=== PATIENT | male | born 2005 | race Caucasian/White ===

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

== ENCOUNTER 2024-05-11 04:53 | Emergency (ER) | payer OTHER, SELFPAY ==
[2024-05-11 04:58] VITALS: BP 141/85; O2SAT 98
[2024-05-11 05:00] VITALS: PULSE 121; O2SAT 100
[2024-05-11 05:01] VITALS: BP 141/85; PULSE 110; RESP 17; TEMP 36.8; O2SAT 97; BMI 16.7
--- NOTE | 2024-05-11 05:05 | ED.NAVMDI ---
HPI - Nausea/Vomiting/Diarrhea General Chief complaint: Nausea/Vomiting/Diarrhea Stated complaint: abd pain, sore throat, vomiting Time Seen by Provider: 05/11/24 05:00 Source: patient Mode of arrival: Ambulatory History of Present Illness HPI Narrative: Patient was otherwise healthy 18-year-old male who is here for evaluation of couple days of a sore throat. Is having some sinus congestion. This morning woke up and had some fairly severe abdominal pain and then vomiting. He reports that his nausea is actually improved. No change in bowel habits. Subjective fevers. Not tried anything for symptoms prior to arrival. Related Data Home Medications Medication Instructions Recorded Confirmed No Known Home Medications 08/24/18 11/18/20 Allergies Allergy/AdvReac Type Severity Reaction Status Date / Time No Known Drug Allergies Allergy Verified 11/18/20 09:01 Review of Systems Review of Systems Narrative: See HPI Patient History Medical History Fracture of clavicle Social History Smoking Status: Never smoker Smoking Status: Never smoker Exam Initial Vital Signs Initial Vital Signs: Vital Signs Blood Pressure 141/85 H 05/11/24 04:58 Pulse Oximetry 98 05/11/24 04:58 Const General: cooperative, comfortable and No ill appearing HENMT Head: normal to inspection and normocephalic Resp Effort & Inspection: normal respiratory effort Auscultation: clear to auscultation bilaterally Cardio Rate: tachycardic Rhythm: regular rhythm GI Inspection: normal to inspection and non-distended Palpation: soft and No tender Neuro General: patient alert and patient awake Course Orders Ordered: ED Orders 05/11/24 05:05 Covid-19 + FLU A/B + RSV - PCR Stat Vital Signs Vital signs: Vital Signs - 8 hr 05/11/24 04:58 05/11/24 04:58 05/11/24 05:00 Temperature Pulse Rate 121 H Respiratory Rate Blood Pressure 141/85 H Pulse Oximetry 98 100 Oxygen Delivery Method 05/11/24 05:01 05/11/24 05:30 Temperature 98.2 F Pulse Rate 110 H 85 Respiratory Rate 17 Blood Pressure 141/85 H Pulse Oximetry 97 100 Oxygen Delivery Method Room Air Room Air MDM - Nausea/Vomiting/Diarrhea Lab Data Attestation: I reviewed the patient's lab results. Labs: Lab Results 05/11/24 Range/Units 05:07 SARS-CoV-2 (PCR) Negative (Negative) Influenza A (RT-PCR) Flu a negative (NEGATIVE) Influenza B (RT-PCR) Flu b negative (NEGATIVE) RSV (PCR) Negative (Negative) MDM Narrative Medical decision making narrative: Patient was now relatively asymptomatic. COVID/flu/RSV negative. Abdomen exam is unremarkable. Tolerating oral intake. No indication for antibiotics. I suspect that his symptoms will continue to improve over the next couple hours/days. Patient was given return precautions and follow-up instructions. He expressed understanding and agreement with the plan. Discharge Plan Departure Patient Disposition: Home Clinical Impression: Acute vomiting Instructions: DI for Vomiting -- Adult Activity Restrictions/Additional Instructions: I do recommend a bland diet for the next couple days. Be sure that you are trying to increase your fluid intake. Return to the emergency department for new or worsening symptoms. Prescriptions: No Action No Known Home Medications Referrals: Jim Oliva MD [Primary Care Provider] - Stand Alone Forms: Patient Portal/API/Survey
[2024-05-11 05:30] VITALS: PULSE 85; O2SAT 100
[2024-05-11 05:54] LABS: Influenza A - CEPHEID Flu A NEGATIVE (NEGATIVE); Influenza B - CEPHEID Flu B NEGATIVE (NEGATIVE); Respiratory Syncytial Virus Negative (Negative)
[2024-05-11 06:00] VITALS: PULSE 79; O2SAT 100
[2024-05-11 06:01] LABS: COVID-19 CEPHEID 4-PLEX PCR Negative (Negative)
[2024-05-11 06:09] VITALS: BP 123/75; PULSE 86; TEMP 36.7; O2SAT 98
== END 2024-05-11 06:13 | disposition home or self-care (01) ==
PROVIDERS: Emergency Provider Emergency Medicine; Family Provider Family Medicine; PCP Family Medicine
DX: R11.10 Vomiting, unspecified (principal)
CPT/HCPCS: 0241U; 99282